=== PATIENT | female | born 1945 | race Caucasian/White ===

== ENCOUNTER 2016-05-06 08:47 | Emergency (ER) | payer OTHER ==
[2016-05-06] MEDS ORDERED: ASPIRIN PO STA (09:01)
[2016-05-06] MEDS ORDERED: NITROGLYCERIN SL PRN (09:01)
[2016-05-06 09:26] LABS: MANUAL DIFF NEEDED? NO
[2016-05-06 09:29] LABS: BASO% 0.4 % (0.0-0.8); HEMATOCRIT 38.5 % (37.0-47.0); HEMOGLOBIN 12.9 g/dL (12.0-16.0); LYMPH# 0.45 X1000 (1.2-3.4); LYMPH% 9.1 % (20.5-51.1); MCH 31.2 PG (27-31); MCHC 33.5 g/dL (33-37); MONO# 0.48 X1000 (0.11-0.59); MONO% 9.7 % (1.7-9.3); MPV 11.3 FL (7.4-10.4); NEUT% 80.8 % (42.2-75.2); PLT 158 X1000 (130-400); RBC 4.14 XMIL (4.2-5.4)
--- NOTE | 2016-05-06 09:38 | PROVIDER DOCUMENTATION ---
HPI-Respiratory General - General Source: patient - History of Present Illness-Resp Quality of Pain: reports: dull Severity in ED: reports: mild Onset/Duration: reports: gradual, 2 days ago Timing: reports: still present, constant Context: reports: multiple patients with similar complaints Cough Quality/Degree: reports: moderate, dry cough Episode Frequency: occasional episodes Current Respiratory Medication Therapy: Initiated see nurses note Modifying Factors: worse with: coughing Associated Symptoms: reports: cough, shortness of breath, short of breath. denies: flu-like symptoms, nasal congestion, nasal drainage, wheezing Similar Symptoms Previously?: No Recently seen or treated by another doctor?: Yes <Kevin Brooks - Last Filed: 05/06/16 10:23> <Brooklynn Lopez - Last Filed: 05/06/16 14:06> - General Chief Complaint: Fall Stated Complaint: Weaknes, Sob Time Seen by Provider: 05/06/16 09:03 Allergies/Adverse Reactions: Patient Allergies Allergy/AdvReac Type Severity Reaction Status Date / Time No Known Allergies Allergy Verified 05/06/16 09:02 Home Medications: Home Medication List Medication Instructions Recorded Confirmed Last Taken Type Omeprazole 40 mg PO 0700 05/11/13 05/06/16 05/06/16 History PRAVAstatin [Pravachol] 80 mg PO QHS 05/11/13 05/06/16 05/06/16 History Aspirin 325 mg PO DAILY 06/12/14 05/06/16 05/06/16 History Metoprolol Tartrate 25 mg PO BID 10/09/14 05/06/16 05/06/16 History Potassium Chloride [Klor-Con 8] 8 meq PO BID #0 10/18/14 05/06/16 05/06/16 Rx Albuterol Sulfate Inhaler 2 puff INH Q6H PRN PRN #1 inhaler 01/19/16 05/06/16 Rx [Ventolin Hfa] Potassium Chloride [K-Tab] 10 meq PO DAILY #20 tablet.er 01/19/16 05/06/1605/06 Rx Alprazolam [Xanax] 0.5 mg PO PRN PRN 05/06/16 05/06/16 Unknown History Furosemide [Lasix] 20 mg PO QAM 05/06/16 05/06/1605/06/17 History - History of Present Illness-Resp Nature of Presenting Problem: patient is a 71 y/o F that presents to the ER with shortness of breath, cough, weakness x 2 days. Patient reports getting weaker everyday. She has a fall last pm with due to weakness. Denies n/v/d. (Kevin Brooks) Review of Systems - Adult - REVIEW OF SYSTEMS - ADULT Constitutional: reports: fatique. denies: chills, fever Eyes: reports: no symptoms reported Ears, Nose, Mouth & Throat: denies: ear pain, sinus problem, throat pain, throat swelling Cardiovascular: denies: chest pain, palpitations Respiratory: reports: cough, shortness of breath. denies: wheezing Gastrointestinal: denies: abdominal pain, diarrhea, frequent heartburn, rectal bleeding Genitourinary: reports: no symptoms reported Musculoskeletal: reports: muscle aches, muscle weakness Integumentary: reports: no symptoms reported Neurological: reports: headache/migraines. denies: syncope Psychiatric: reports: no symptoms reported Endocrine: reports: no symptoms reported Hematologic/Lymphatic: reports: no symptoms reported Allergic/Immunologic: reports: no symptoms reported All Other Systems: Reviewed and Negative <Kevin Brooks - Last Filed: 05/06/16 10:23> Past History - Adult - PAST MEDICAL HISTORY-ADULT Review of Records: reports: Old Records Reviewed, Nursing Assessment Review, Medications Reviewed Cardiovascular: reports: HTN, hyperlipidemia, ID Respiratory: reports: COPD Gastrointestinal: reports: GERD Obstetrical/Gynecological: reports: other (breast ca) Neurological: reports: CVA - PRIOR SURGERIES/PROCEDURES Surgical/Procedure History: reports: appendectomy, hysterectomy, tonsillectomy - IMMUNIZATION STATUS Childhood Immunizations: See Nurse Assessment Flu Vaccine: See Nurse Assessment - FAMILY HISTORY Family History: reviewed, not pertinent - SOCIAL HISTORY Smoking: quit greater than 1 year, cigarettes Living Situation: family <Kevin Brooks - Last Filed: 05/06/16 10:23> Physical Exam-General - PHYSICAL EXAM-ADULT Initial Vital Signs Reviewed: Yes - CONSTITUTIONAL General Appearance: alert, no apparent distress - EYES Eyes: PERRL/EOMI, pink conjunctivae - HEAD, EARS, NOSE, MOUTH & THROAT HENMT: normocephalic/atraumatic, moist mucous membranes, normal ENT inspection - NECK Neck: full range of motion, normal inspection - RESPIRATORY Respiratory: no respiratory distress, no accessory muscle use, decreased breath sounds (right base) - CARDIOVASCULAR Cardiovascular: no JVD, other (irregular regular) - GASTROINTESTINAL (ABDOMEN) Abdominal Exam: normal bowel sounds, non tender, soft - MUSCULOSKELETAL Extremity: normal range of motion, no calf tenderness, normal capillary refill, pelvis stable - SKIN Integumentary: normal color, warm/dry - NEUROLOGIC Neurologic: grossly normal, no motor/sensory deficits - PSYCHIATRIC Psych/Mental Status: normal mood/affect, normal thought content, normal thought process, oriented x 3 <Kevin Brooks - Last Filed: 05/06/16 10:23> Progress - EKG 1 Time of EKG reading by physician:: 08:58 EKG Read and Signed by:: Tl Azevedo EKG Interpretation (*Must complete 3 of following elements*): Abnormal Rate: 96 Rhythm: NSR [place]: normal QRS: normal VT Interval: normal ST Wave: non-specific ST changes - XRAY 1 XRAY Study: Chest Impression: Abnormal XRAY Interpretation: pulmonary vascular congestion <Kevin Brooks - Last Filed: 05/06/16 10:23> - REASSESSMENT Reassessment #1 Time Reassessed: 14:04 (Pt reports she is feeling better and is aware of her X- ray results. Pt reports she sometimes forgets to take her medication, Dr. Azevedo advised her to use a medicine dispensary) Status: improving - CT/MRI 1 CT Study: Angiogram (no acute disease) <Brooklynn Lopez - Last Filed: 05/06/16 14:06> - PLAN OF CARE/RESULTS Progress/Plan/Lab Results: plan of care-labs,ekg,cxry 1023-Due to elevated d-dimer, ct angio r/o pe ordered (Kevin Brooks) Laboratory Tests 05/06/16 05/06/16 05/06/16 09:00 09:00 09:00 WBC 4.95 RBC 4.14 L Hgb 12.9 Hct 38.5 MCV 93.0 MCH 31.2 H MCHC 33.5 RDW Std Deviation 14.9 H Plt Count 158 MPV 11.3 H Immature Gran % (Auto) 0.0 Neut % (Auto) 80.8 H Lymph % (Auto) 9.1 L Sutton % (Auto) 9.7 H Eos % (Auto) 0.0 Baso % (Auto) 0.4 Immature Gran # (Auto) 0.00 Neut # (Auto) 4.00 Lymph # (Auto) 0.45 L Sutton # (Auto) 0.48 Eos # (Auto) 0.00 Baso # (Auto) 0.02 PT INR PTT (Actin FS) D-Dimer 1.83 H Sodium 134 L Potassium 3.0 L Chloride 96 L Carbon Dioxide 23 L Anion Gap 15 BUN 20 Creatinine 0.8 Estimated GFR/1.73 m2 > 60 BUN/Creatinine Ratio 25 Glucose 114 H Calculated Osmolality 272 Calcium 8.5 L Magnesium 1.4 L Total Bilirubin 0.50 AST 35 H ALT 17 Alkaline Phosphatase 90 Creatine Kinase 109 Troponin T Rqj-E-Kirgyoimzhu Pept Total Protein 6.5 Albumin 3.5 Globulin 3.0 Albumin/Globulin Ratio 1.2 Urine Source Urine Color Urine Turbidity Urine pH Ur Specific [place] Urine Protein Ur Glucose (Stick) Ur Ketones (Stick) Urine Blood Urine Nitrite Urine Bilirubin Urobilinogen Dipstick Urine Leukocytes Urine WBC (Auto) Urine RBC (Auto) U Epithel Cells (Auto) Urine Bacteria (Auto) 05/06/16 05/06/16 05/06/16 09:00 09:00 09:00 WBC RBC Hgb Hct MCV MCH MCHC RDW Std Deviation Plt Count MPV Immature Gran % (Auto) Neut % (Auto) Lymph % (Auto) Sutton % (Auto) Eos % (Auto) Baso % (Auto) Immature Gran # (Auto) Neut # (Auto) Lymph # (Auto) Sutton # (Auto) Eos # (Auto) Baso # (Auto) PT 11.1 INR 1.05 PTT (Actin FS) 23.7 D-Dimer Sodium Potassium Chloride Carbon Dioxide Anion Gap BUN Creatinine Estimated GFR/1.73 m2 BUN/Creatinine Ratio Glucose Calculated Osmolality Calcium Magnesium Total Bilirubin AST ALT Alkaline Phosphatase Creatine Kinase Troponin T < 0.010 Lti-L-Xiyhcoegkbh Pept 994 H Total Protein Albumin Globulin Albumin/Globulin Ratio Urine Source Urine Color Urine Turbidity Urine pH Ur Specific [place] Urine Protein Ur Glucose (Stick) Ur Ketones (Stick) Urine Blood Urine Nitrite Urine Bilirubin Urobilinogen Dipstick Urine Leukocytes Urine WBC (Auto) Urine RBC (Auto) U Epithel Cells (Auto) Urine Bacteria (Auto) 05/06/16 10:01 WBC RBC Hgb Hct MCV MCH MCHC RDW Std Deviation Plt Count MPV Immature Gran % (Auto) Neut % (Auto) Lymph % (Auto) Sutton % (Auto) Eos % (Auto) Baso % (Auto) Immature Gran # (Auto) Neut # (Auto) Lymph # (Auto) Sutton # (Auto) Eos # (Auto) Baso # (Auto) PT INR PTT (Actin FS) D-Dimer Sodium Potassium Chloride Carbon Dioxide Anion Gap BUN Creatinine Estimated GFR/1.73 m2 BUN/Creatinine Ratio Glucose Calculated Osmolality Calcium Magnesium Total Bilirubin AST ALT Alkaline Phosphatase Creatine Kinase Troponin T Vzx-C-Liepftwzsyl Pept Total Protein Albumin Globulin Albumin/Globulin Ratio Urine Source CLEAN CATCH Urine Color YELLOW Urine Turbidity CLEAR Urine pH 6.0 Ur Specific [place] 1.033 Urine Protein 30 A Ur Glucose (Stick) NEGATIVE Ur Ketones (Stick) 20 A Urine Blood SMALL A Urine Nitrite NEGATIVE Urine Bilirubin NEGATIVE Urobilinogen Dipstick NORMAL Urine Leukocytes NEGATIVE Urine WBC (Auto) <10 Urine RBC (Auto) 10-20 A U Epithel Cells (Auto) <10 Urine Bacteria (Auto) NEGATIVE (Brooklynn Lopez) Departure <Kevin Brooks - Last Filed: 05/06/16 10:23> - Departure Time of Disposition Order: 13:58 Certified Medical Emergency: Emergent <Brooklynn Lopez - Last Filed: 05/06/16 14:06> - Departure DIAGNOSIS: SOB (shortness of breath), Cough CHF (congestive heart failure) Qualifiers: Congestive heart failure type: unspecified congestive heart failure type Congestive heart failure chronicity: unspecified congestive heart failure chronicity Qualified Code(s): I50.9 - Heart failure, unspecified Disposition: HOME 01 Condition: Stable Referrals: Low Erazo MD [Primary Care Provider] - Attestation - Scribe Verification/Attestation Scribe:: Kevin Brooks Acting as Scribe for:: Tl Azevedo Scribe documention review:: This chart was documented by a scribe and accurately reflects the service the provider performed and the decisions made by the provider. <Kevin Brooks - Last Filed: 05/06/16 10:23> - Scribe Verification/Attestation Scribe:: Brooklynn Lopez Acting as Scribe for:: Tl Azevedo Scribe documention review:: This chart was documented by a scribe and accurately reflects the service the provider performed and the decisions made by the provider. <Brooklynn Lopez - Last Filed: 05/06/16 14:06> Physician Attestation - Physician Attestation I, the provider, attest to the following statement:: Tl Azevedo Physician documentation Attestation:: This documentation recorded by the scribe accurately reflects the service I personally performed and the decisions made by me. <Kevin Brooks - Last Filed: 05/06/16 10:23>
--- NOTE | 2016-05-06 09:38 | Diag Imaging Result Document ---
PROCEDURE NAME: CHEST-1 VIEW - 05/06/2016 PORTABLE CHEST X-RAY, 05/06/2016: COMPARISON: 04/02/2016. FINDINGS: There is a stable epicardial fat pad at the left heart border. Heart size is grossly normal. There is however moderate pulmonary vascular congestion. No focal infiltrates, pneumothorax, or large effusion. Surgical clips along the right chest wall are stable. IMPRESSION: Pulmonary vascular congestion.
[2016-05-06 09:40] LABS: INR 1.05; PROTIME 11.1 Seconds (9.2-11.7); PTT 23.7 Seconds (22.0-36.0)
[2016-05-06 09:48] LABS: AGAP 15; ALBUMIN 3.5 g/dL (3.5-5.0); ALKALINE PHOSPHATASE 90 U/L (32-104); BUN 20 mg/dL (8-22); CALCIUM 8.5 mg/dL (8.8-10.2); CHLORIDE 96 mmol/L (98-107); CK PROFILE 109 U/L (24-173); COSMO 272; GOT 35 U/L (10-30); GPT 17 U/L (10-36); MAGNESIUM 1.4 mg/dL (1.5-2.7); SODIUM 134 mmol/L (136-145); TCO2 23 mmol/L (25-35); TOTAL PROTEIN 6.5 g/dL (6.3-8.3)
[2016-05-06] MEDS ORDERED: LASIX IV ONE (10:23)
[2016-05-06] MEDS ORDERED: DUONEB (A & A) INH ONE ×2 (10:23→14:05)
--- NOTE | 2016-05-06 10:51 | EKG Report ---
Test Performed on : 05/06/2016 08:58:11 AM Test Reason : Chest Pain Blood Pressure : / mmHG Vent. Rate : 096 BPM Atrial Rate : 096 BPM P-R Int : 152 ms QRS Dur : 088 ms QT Int : 326 ms P-R-T Axes : 022 -10 084 degrees QTc Int : 411 ms Normal sinus rhythm. Inferior infarct , age undetermined Cannot rule out Anterior infarct (cited on or before 28-JUN-2013) Abnormal ECG When compared with ECG of 02-APR-2016 11:42, T wave inversion now evident in Lateral leads Unconfirmed Result
[2016-05-06 10:54] LABS: URINE MICRO REVIEW NEEDED? NO; URINE SOURCE CLEAN CATCH
[2016-05-06 10:58] LABS: BILIRUBIN URINE NEGATIVE (NEGATIVE); BLOOD URINE SMALL (NEGATIVE); COLOR YELLOW; GLUCOSE URINE NEGATIVE (NEGATIVE); LEUKOCYTES URINE NEGATIVE (NEGATIVE); NITRITE URINE NEGATIVE (NEGATIVE); PROTEIN URINE 30 mg/dL (NEGATIVE); SP GRAVITY URINE 1.033; TURBIDITY URINE CLEAR (CLEAR); UROBILINOGEN URINE NORMAL (NORMAL)
[2016-05-06 11:00] LABS: UR EPITHELIAL CELLS <10 /HPF (<10); URINE BACTERIA NEGATIVE /HPF; URINE WBC <10 /HPF (<10)
[2016-05-06] MEDS ORDERED: ROCEPHIN 1 GM/NS 50 ML IV ONE (14:05)
--- NOTE | 2016-05-06 14:17 | Diag Imaging Result Document ---
PROCEDURE NAME: ANGIOGRAM/PULMONARY ARTERIES - 05/06/2016 CT PULMONARY ANGIOGRAM WITH INTRAVENOUS CONTRAST: A CT dose reduction protocol was used. COMPARISON: 01/19/2016. FINDINGS: Axial CT images of the chest were obtained after administering intravenous contrast. Coronal MIP images were generated. There is no pulmonary embolism. Heart and great vessels are normal. Upper abdominal images are unremarkable. There is some moderate peripheral pulmonary scarring, stable from prior. There is no acute bony lesion. IMPRESSION: No acute disease or change from prior. [facility]
[2016-05-06 15:34] VITALS: BP 129/84
== END 2016-05-06 15:35 | disposition home or self-care (01) ==
LOC: EDBD → ED 08:47
DX: I50.9 Heart failure, unspecified (principal); R06.02 Shortness of breath; R05 Cough; R79.1 Abnormal coagulation profile; M62.81 Muscle weakness (generalized); M79.1 Myalgia; R51 Headache; R53.83 Other fatigue; Z79.899 Other long term (current) drug therapy; I10 Essential (primary) hypertension; E78.5 Hyperlipidemia, unspecified; I25.2 Old myocardial infarction; J44.9 Chronic obstructive pulmonary disease, unspecified; K21.9 Gastro-esophageal reflux disease without esophagitis; Z85.3 Personal history of malignant neoplasm of breast; Z86.73 Personal history of transient ischemic attack (TIA), and cerebral infarction without residual deficits; Z87.891 Personal history of nicotine dependence; R94.31 Abnormal electrocardiogram [ECG] [EKG]; W19.XXXA Unspecified fall, initial encounter; Z79.82 Long term (current) use of aspirin
CPT/HCPCS: 71010; 71275; 80053; 81001; 82550; 83735; 83880; 84484; 85025; 85379; 85610; 85730; 93005; 94640; J0696; J1940; Q9967

== ENCOUNTER 2019-03-10 12:13 | Inpatient (IN) ==
--- NOTE | 2019-03-10 12:56 | PROVIDER DOCUMENTATION ---
HPI-Abdominal Pain/GI Problem - General Chief Complaint: Abdominal Pain Stated Complaint: RUQ pain Time Seen by Provider: 03/10/19 12:30 Source: patient Allergies/Adverse Reactions: Patient Allergies Allergy/AdvReac Type Severity Reaction Status Date / Time No Known Allergies Allergy Verified 03/10/19 12:10 Home Medications: Home Medication List Medication Instructions Recorded Confirmed Last Taken Type PRAVAstatin [Pravachol] 80 mg PO QHS 05/11/13 11/09/17 05/06/16 History Aspirin 325 mg PO DAILY 06/12/14 11/09/17 05/06/16 History Metoprolol Tartrate 25 mg PO BID 10/09/14 11/09/17 05/06/16 History Albuterol Sulfate Inhaler 2 puff INH Q6H PRN PRN #1 inhaler 01/19/16 11/09/17 05/06/16 Rx [Ventolin Hfa] Alprazolam [Xanax] 0.5 mg PO PRN PRN 05/06/16 11/09/17 Unknown History Furosemide [Lasix] 20 mg PO QAM 05/06/16 11/09/17 05/06/16 History Albuterol [Albuterol Neb] 2.5 mg INH Q4H PRN PRN #30 neb 10/08/16 11/09/17 Unknown Rx Dicyclomine [Bentyl] 20 mg PO BID #20 cap 09/01/17 11/09/17 Unknown Rx Esomeprazole [Nexium] 40 mg PO DAILY 09/01/17 11/09/17 Unknown History Mag Hydrox/Al Hydrox/Simeth 710 ml PO DIRECTED PRN PRN #1 11/09/17 Unknown Rx [Mylanta Double-Strength Liq] oral.susp Potassium Chloride [Klor-Con 8] 16 meq PO BID 11/09/17 11/09/17 Unknown History Spironolactone 25 mg PO DAILY #90 tablet 11/09/17 Unknown Rx Acetaminophen with Codeine 1 ea PO Q8-12H PRN PRN #14 tab 05/14/18 Unknown Rx [Tylenol with Codeine #3 Tablet] Famotidine [Pepcid] 20 mg PO DAILY #30 tab 03/09/19 Unknown Rx Pantoprazole [Protonix] 40 mg PO DAILY@0700 #30 tab 03/09/19 Unknown Rx - History of Present Illness-ABD Nature of Presenting Problems: 73 YOF PRESENTS FOR RECHECK OF RUQ PAIN,SHE WAS NOTED TO HAVE GALLBLADDER SLUDGE AND SMALL STONES YESTERDAY WITH A WBC OF 16K. A RUQ US WAS DONE AND SHOWED THE ABOVE FINDINGS. SHE PRESENTS TODAY WITH RECURRENT PAIN. SHE HAS HAD SOME NAUSEA. DENIES VOMITING, CP, SOB, DIARRHEA. REPORTS RUQ FEELS SWOLLEN. SHE DID NOT GET RX FOR PAIN FILLED BUT RECEIVED 75MCG OF FENTANYL IN ROUTE THAT IMPROVED PAIN. Abdominal Pain Onset Location: reports: RUQ Pain Radiation: reports: epigastric Quality of Pain: reports: aching Severity in ED: reports: moderate Onset/Duration: reports: 2 days ago Timing: reports: still present Exposure to sick contacts?: No Modifying Factors: worse with: eating Associated Symptoms: reports: seizure Last BM: 24 hours ago Dark Stools Present?: reports: none noticed Rectal Bleeding: reports: none Rectal Pain: reports: none Emesis Description: reports: none Bruising or Bleeding Gums?: No Similar Symptoms Previously?: No Recently seen or treated by another doctor?: No Review of Systems - Adult - REVIEW OF SYSTEMS - ADULT Constitutional: reports: no symptoms reported. denies: see HPI, chills, fever, fatique, night sweats, weight gain, weight loss, other Eyes: reports: no symptoms reported. denies: see HPI, discharge, dry eyes, decreased vision, blurred vision, double vision, eye pain, redness, other Ears, Nose, Mouth & Throat: reports: no symptoms reported. denies: see HPI, ear discharge, ear pain, hearing loss, tinnitus, epistaxis, sinus problem, nose pain, loose teeth, mouth/dental pain, mouth swelling, hoarseness, throat pain, throat swelling, other Cardiovascular: reports: no symptoms reported. denies: see HPI, chest pain, edema, heart murmur, irregular heart rate, orthopnea, palpitations, poor circulation, PND, syncope, other Respiratory: reports: no symptoms reported. denies: see HPI, chronic cough, cough, dyspnea on exertion, excessive sputum production, hemoptysis, pleurisy, shortness of breath, wheezing, other Gastrointestinal: reports: see HPI, abdominal pain, nausea. denies: no symptoms reported, hematemesis, constipation, diarrhea, difficulty swallowing, frequent heartburn, poor appetite, rectal bleeding, vomiting, other Genitourinary: reports: no symptoms reported. denies: see HPI, dysuria, discharge, frequency, flank pain, frequent UTI's, hematuria, hesitency, incontinence, urinary retention, urgency, other Musculoskeletal: reports: no symptoms reported. denies: see HPI, bone pain, back pain, frequent leg cramps, joint pain, joint swelling, muscle aches, muscle weakness, neck pain, other Integumentary: reports: no symptoms reported. denies: see HPI, hives, hair loss, itching, mole changes, nail changes, rash, skin sores/ulcer, skin thickening, other Neurological: reports: no symptoms reported. denies: see HPI, ataxia, dizziness/vertigo, headache/migraines, loss of balance, numbness, paresthesia, seizure, slurred speech, syncope, tremors, other Psychiatric: reports: no symptoms reported. denies: see HPI, anxiety, anti- depressant use, alcohol/drug dependence, depression, emotional problems, insomnia, panic attacks, suicidal thoughts, other Endocrine: reports: no symptoms reported. denies: see HPI, change in skin pigment, excessive sweating, goiter, cold intolerance, heat intolerance, increased hunger, increased thirst, polyuria, other Hematologic/Lymphatic: reports: no symptoms reported. denies: see HPI, blood clots, easy bruising, low blood count, lymphedema, prolonged bleeding, swollen lymph nodes, transfusions, other Allergic/Immunologic: reports: no symptoms reported. denies: see HPI, allergic reactions, allergic rhinitis, asthma, eczema, food allergy, frequent infections, hay fever, hives, positive PPD, urticaria, other Past History - Adult - PAST MEDICAL HISTORY-ADULT Review of Records: reports: Nursing Assessment Review, Social history reviewed & non-contributory. Major Childhood Illnesses: reports: denies history Cardiovascular: reports: HTN, hyperlipidemia, [place] Respiratory: reports: COPD Gastrointestinal: reports: GERD Obstetrical/Gynecological: reports: other (breast ca) Genitourinary: reports: denies history Musculoskeletal: reports: denies history Neurological: reports: CVA, TIA Psychiatric: reports: denies history Endocrine/Immune: reports: denies history Other Conditions: reports: denies history - PRIOR SURGERIES/PROCEDURES Surgical/Procedure History: reports: appendectomy, hysterectomy, tonsillectomy - IMMUNIZATION STATUS Childhood Immunizations: See Nurse Assessment Flu Vaccine: See Nurse Assessment - FAMILY HISTORY Family History: reviewed, not pertinent Physical Exam-General - PHYSICAL EXAM-ADULT Initial Vital Signs Reviewed: Yes - CONSTITUTIONAL General Appearance: alert, no apparent distress. negative: appears well (APPEARS IN PAIN) - EYES Eyes: PERRL/EOMI, pink conjunctivae - HEAD, EARS, NOSE, MOUTH & THROAT HENMT: normocephalic/atraumatic, moist mucous membranes, normal ENT inspection - NECK Neck: non-tender, full range of motion, supple - RESPIRATORY Respiratory: chest non-tender, lungs clear, normal breath sounds, no pleuratic chest pain, no respiratory distress, no accessory muscle use - CARDIOVASCULAR Cardiovascular: normal peripheral pulses, regular rate, rhythm. negative: no edema (RUE, CHRONIC) - GASTROINTESTINAL (ABDOMEN) Abdominal Exam: normal bowel sounds, soft, distended (RUQ), tenderness (RUQ), Weber's sign - LYMPHATIC Lymphatic: no adenopathy - MUSCULOSKELETAL Back Exam: normal inspection, no CVA tenderness, no vertebral tenderness Extremity: normal range of motion, non-tender, normal gait - SKIN Integumentary: normal color, normal turgor, warm/dry - NEUROLOGIC Neurologic: grossly normal - PSYCHIATRIC Psych/Mental Status: normal mood/affect, oriented x 3 Progress - PLAN OF CARE/RESULTS Progress/Plan/Lab Results: Vital Signs - 8 hr 03/10/19 12:18 Temperature 97.4 F L Pulse Rate 74 Respiratory Rate 18 Blood Pressure 141/76 O2 Sat by Pulse Oximetry 100 Orders Category Date Time Status CT ABD/PELVIS W/IV CONT ONLY [CT] Stat Exams 03/10/19 12:08 Ordered cxr [CHEST-2 VIEWS] [RAD] Stat Exams 03/10/19 12:27 Ordered AMYLASE [CHEM] Stat Lab 03/10/19 12:08 Ordered CBC WITH ELECTRONIC DIFF [HEME] Stat Lab 03/10/19 12:47 Ordered COMPREHENSIVE METABOLIC PANEL [CHEM] Stat Lab 03/10/19 12:47 Ordered LACTATE, PLASMA [CHEM] Stat Lab 03/10/19 12:47 Ordered LIPASE [CHEM] Stat Lab 03/10/19 12:47 Ordered UA NIMS W/REFLEX CULT [URINALYSIS] Stat Lab 03/10/19 12:08 Uncollected Result Diagrams: 03/10/19 12:45 03/10/19 12:45 - CT/MRI 1 CT Study: Abdomen, Pelvis Impression: See EMR Report (EXAM: CT ABD/PELVIS W/IV CONT ONLY - 03/10/2019 HISTORY: PAIN TECHNIQUE: CT abdomen/pelvis with intravenous contrast COMPARISON: 09/01/2017 FINDINGS: The gallbladder is moderately distended. There are two subcentimeter calcified gallstones in the dependent portion of gallbladder. There is no gross gallbladder wall thickening or pericholecystic inflammation identified. There is no pancreatic mass or inflammation identified. There is mild scarring at the visualized lung bases. There are stable tiny cyst at the dome of liver. There are no acute abnormalities of the liver, spleen, or adrenal glands identified. The bilateral kidneys enhance homogeneously. There is no hydronephrosis. There are no substantially enlarged lymph nodes identified. There is no evidence of bowel obstruction. The appendix is questionably visualized and unremarkable. There is mild diverticulosis at sigmoid colon. There is no evidence of diverticulitis. There is no substantial bowel wall thickening identified. There is no free air, free fluid, or abscess identified. Images of pelvis otherwise show postsurgical changes of partial hysterectomy. There is no abnormal pelvic mass or fluid collection identified. IMPRESSION: Moderately distended gallbladder. Two small gallstones in dependent portion of gallbladder. No gross gallbladder wall thickening or pericholecystic inflammation seen. Mild diverticulosis at sigmoid colon. No evidence of diverticulitis. This exam was performed using automated exposure control, adjustment of mA or kV according to patient size, and/or use of iterative reconstruction technique. Electronically signed by Stefan Robbins 03/10/2019 2:13 PM 03/10/19 1413 Interpreting Physician: Stefan Robbins MD Dictated Date/Time: 03/10/19 1407 cc: Mary Alice Sheppard;) - CONSULTS/PCP/HOSPITALIST Notification #1 *Consult/PCP/Hospitalist*: DR FARRELL Time Discussed: 15:02 Consult Disposition: Admit (AT ) #2 Consult: DR DANIELS Time Discussed: 15:02 Consult Disposition: Admit Departure - Departure Date of Disposition Decision: 03/10/19 Time of Disposition Decision: 15:01 DIAGNOSIS: Gall bladder disease, Cholecystitis Disposition: ADMITTED INPATIENT 09 Certified Medical Emergency: Emergent Condition: Stable - Critical Care Note This patient required my direct & personal management of CC.: No Attestation - Physician/ MARKUS Attestation Patient care was provided by Advanced Practice Provider:: Yes Advanced Practice Provider:: Mary Alice Sheppard Advanced Practice Provider documentation review:: The Mid-level provider documentation, treatment plan and medical decision making was reviewed by the physician who agrees with all treatment and medical decision making by the MLP. The physician spent face to face time with patient:: No Advanced Practice Provider documentation review:: Supervising physician onsite and consulted in the evaluation and care of this patient. The physician did not have a face to face encounter with the patient.
[2019-03-10 13:17] LABS: BASO# 0.02 X1000 (0.0-0.2); BASO% 0.2 % (0.0-0.8); EOS# 0.04 X1000 (0.0-0.7); EOS% 0.4 % (0.0-10.0); HEMATOCRIT 42.8 % (37.0-47.0); IMM GRAN# 0.02 X1000 (0.0-0.04); IMM GRAN% 0.2 % (0.0-0.5); LYMPH# 0.87 X1000 (1.2-3.4); MCHC 32.7 g/dL (33-37); MCV 91.8 FL (81-99); MONO# 0.47 X1000 (0.11-0.59); MONO% 4.3 % (1.7-9.3); MPV 12.2 FL (7.4-10.4); NEUT# 9.44 X1000 (1.4-6.5); NEUT% 86.9 % (42.2-75.2); PLT 160 X1000 (130-400); RBC 4.66 XMIL (4.2-5.4); RDW 13.7 % (11.5-14.5); WBC 10.86 X1000 (4.8-10.8)
[2019-03-10 13:27] LABS: AGAP 15; ALBUMIN 3.8 g/dL (3.5-5.0); ALKALINE PHOSPHATASE 218 U/L (32-104); BUN 16 mg/dL (8-22); CALCIUM 9.2 mg/dL (8.8-10.2); CHLORIDE 99 mmol/L (98-107); COSMO 279; CREATININE 0.8 mg/dL (0.5-0.9); ESTIMATED GFR > 60; GLUCOSE 106 mg/dL (70-104); GOT 404 U/L (10-30); GPT 235 U/L (10-36); LIPASE 23 U/L (13-60); POTASSIUM 4.1 mmol/L (3.5-5.1); SODIUM 139 mmol/L (136-145); TCO2 25 mmol/L (25-35); TOTAL PROTEIN 7.5 g/dL (6.3-8.3)
[2019-03-10 13:30] LABS: URINE SOURCE CLEAN CATCH
[2019-03-10 13:36] LABS: BILIRUBIN URINE NEGATIVE (NEGATIVE); BLOOD URINE NEGATIVE (NEGATIVE); COLOR YELLOW; GLUCOSE URINE NEGATIVE (NEGATIVE); KETONE URINE TRACE mg/dL (NEGATIVE); LEUKOCYTES URINE TRACE (NEGATIVE); NITRITE URINE NEGATIVE (NEGATIVE); PH URINE 5.5; PROTEIN URINE NEGATIVE (NEGATIVE); SP GRAVITY URINE 1.012; TURBIDITY URINE CLEAR (CLEAR); UROBILINOGEN URINE NORMAL (NORMAL)
--- NOTE | 2019-03-10 14:00 | Diag Imaging Result Doc PS360 ---
CHEST-2 VIEWS - 03/10/2019 INDICATION: RUQ PAIN, R/O PNA, SAT 90% COMPARISON: 08/30/2018 FINDINGS: Stable surgical clips throughout the right axillary soft tissues. Lung volumes are severely low. There is some patchy bibasilar atelectasis. There is cardiomegaly and pulmonary vascular congestion. No pneumothorax or pleural effusion. Stable mild compression deformities at the upper thoracic spine. IMPRESSION: Low lung volumes with patchy bibasilar atelectasis. Cardiomegaly and pulmonary vascular congestion. Electronically signed by Cholo Zuniga 03/10/2019 1:58 PM
[2019-03-10 14:02] LABS: UR EPITHELIAL CELLS <10 /HPF (<10); URINE BACTERIA NEGATIVE /HPF; URINE CASTS NONE SEEN; URINE CRYSTALS NONE SEEN; URINE RBC <10 /HPF (<10); URINE SMALL ROUND CELLS NONE SEEN; URINE WBC <10 /HPF (<10); URINE YEAST NONE SEEN
--- NOTE | 2019-03-10 14:16 | Diag Imaging Result Doc PS360 ---
EXAM: CT ABD/PELVIS W/IV CONT ONLY - 03/10/2019 HISTORY: PAIN TECHNIQUE: CT abdomen/pelvis with intravenous contrast COMPARISON: 09/01/2017 FINDINGS: The gallbladder is moderately distended. There are two subcentimeter calcified gallstones in the dependent portion of gallbladder. There is no gross gallbladder wall thickening or pericholecystic inflammation identified. There is no pancreatic mass or inflammation identified. There is mild scarring at the visualized lung bases. There are stable tiny cyst at the dome of liver. There are no acute abnormalities of the liver, spleen, or adrenal glands identified. The bilateral kidneys enhance homogeneously. There is no hydronephrosis. There are no substantially enlarged lymph nodes identified. There is no evidence of bowel obstruction. The appendix is questionably visualized and unremarkable. There is mild diverticulosis at sigmoid colon. There is no evidence of diverticulitis. There is no substantial bowel wall thickening identified. There is no free air, free fluid, or abscess identified. Images of pelvis otherwise show postsurgical changes of partial hysterectomy. There is no abnormal pelvic mass or fluid collection identified. IMPRESSION: Moderately distended gallbladder. Two small gallstones in dependent portion of gallbladder. No gross gallbladder wall thickening or pericholecystic inflammation seen. Mild diverticulosis at sigmoid colon. No evidence of diverticulitis. This exam was performed using automated exposure control, adjustment of mA or kV according to patient size, and/or use of iterative reconstruction technique. Electronically signed by Stefan Robbins 03/10/2019 2:13 PM
[2019-03-10] MEDS: NS 1,000 ML IV SCH (15:38)
[2019-03-10] MEDS: ZOSYN 3.375 GM in NS 50 ML IV SCH ×2 (15:38→21:05)
[2019-03-10] MEDS: TYLENOL PO PRN (15:42)
[2019-03-10] MEDS: ZOFRAN IV PRN (15:42)
[2019-03-10] MEDS ORDERED: MORPHINE IV ONE (16:28)
[2019-03-10] MEDS ORDERED: ZOFRAN IV ONE (16:28)
[2019-03-11] MEDS: ZOSYN 3.375 GM in NS 50 ML IV SCH ×4 (02:24→21:24)
[2019-03-11] MEDS: NS 1,000 ML IV SCH ×3 (02:25→18:45)
[2019-03-11] MEDS: TYLENOL PO PRN ×2 (02:27→12:10)
[2019-03-11 08:16] LABS: HEMATOCRIT 36.7 % (37.0-47.0); HEMOGLOBIN 12.1 g/dL (12.0-16.0); MCH 30.7 PG (27-31); MCV 93.1 FL (81-99); MPV 12.2 FL (7.4-10.4); RBC 3.94 XMIL (4.2-5.4); RDW 13.9 % (11.5-14.5); WBC 6.32 X1000 (4.8-10.8)
[2019-03-11] MEDS ORDERED: PROTONIX IV ONE (08:52)
[2019-03-11] MEDS ORDERED: SODIUM CHLORIDE 0.9% INJ ONE (08:52)
[2019-03-11 09:10] LABS: CALCIUM 8.2 mg/dL (8.8-10.2); MAGNESIUM 1.6 mg/dL (1.5-2.7); POTASSIUM 3.4 mmol/L (3.5-5.1); TOTAL BILIRUBIN 5.28 mg/dL (0.20-1.00)
--- NOTE | 2019-03-11 12:13 | PROGRESS NOTE ---
DATE: 03/11/2019 SUBJECTIVE: The patient is resting comfortably in bed. She is still complaining of right upper quadrant pain. She has Weber sign positive. No rebound. No signs of peritoneal irritation. PHYSICAL EXAMINATION: Vital Signs: Temperature 97.8 degrees, pulse 68, respiratory rate 16, blood pressure 113/53, oxygen saturation 97% on room air. HEENT: Head normocephalic, no trauma. PERRLA. Neck: Neck is supple. No JVD. No masses. Central trachea. Chest: Clear to auscultation. No wheezing. No rales. Abdomen: Soft. Tenderness to palpation at the level of the right upper quadrant. Weber sign positive. Neurological examination: The patient is awake, alert. She is oriented x3. No focal deficits. LABORATORY: WBC 6.2, hemoglobin 12.1, hematocrit 36.7, platelet 148. Pending CMP, but the LFTs from yesterday are elevated; total bilirubin 3.4, AST 404, ALT 235, alkaline phosphatase 218. ASSESSMENT AND PLAN: 1. Right upper quadrant pain, likely due to cholecystitis. This patient will be going hopefully to the operating room. As per the patient, she has been evaluated by Surgery Department today, and she has been scheduled today for surgery. 2. History of coronary artery disease status post stent placement, previous myocardial infarction. She seems to be well controlled. Continue with same management. Continue with her home medications after surgery. 3. Dyslipidemia. Continue with atorvastatin once she is able to tolerate oral. 4. Hypertension. Continue home medications, including metoprolol. 5. Gastroesophageal reflux disease. Continue with proton pump inhibitors. I will started that treatment at this moment intravenously. 6. As per the patient, she has a history of chronic obstructive pulmonary disease, but I do not see any medication listed for chronic obstructive pulmonary disease treatment at home. cc: Rosendo Garcia MD
[2019-03-11] MEDS ORDERED: MARCAINE 0.25% PF ONE (13:20)
[2019-03-11] MEDS ORDERED: SODIUM CHLORIDE 0.9% ONE (13:20)
[2019-03-11] MEDS ORDERED: LR 1,000 ML ONE (13:20)
[2019-03-11] MEDS ORDERED: DIPRIVAN 1% ONE ×2 (14:00→14:49)
[2019-03-11] MEDS ORDERED: TORADOL ONE (14:24)
[2019-03-11] MEDS ORDERED: DECADRON ONE (14:24)
[2019-03-11] MEDS ORDERED: ZOFRAN ONE (14:24)
[2019-03-11] MEDS ORDERED: ZEMURON ONE (14:28)
--- NOTE | 2019-03-11 14:32 | CONSULTATION ---
DATE OF CONSULTATION: 03/11/2019 Ms. Francoise Monteiro is a 73-year-old white female patient of Dr. Erazo, who this week has experienced epigastric and right upper quadrant pain. She saw Dr. Erazo earlier in the week. She also went to the ER and Wednesday with these symptoms. Yesterday at [facility] Emergency Department, it was noted that she had elevated liver function tests and CT scan suggested stones in her gallbladder and she was transferred from [facility] Emergency Department to [facility] for further care. PAST MEDICAL HISTORY: She had a heart attack in 2009 treated with a stent. She has been on aspirin. She was diagnosed with right-sided breast cancer in 2003 treated with breast conservation and chemotherapy. MEDICATIONS: Tylenol with codeine #3, aspirin, Nexium, Pepcid,Lasix,, metoprolol, potassium, Pravachol. ALLERGIES: No known drug allergies. SOCIAL HISTORY: She is retired. She smoked 30 years ago. REVIEW OF SYSTEMS: A 14-point review of systems was performed and was essentially negative except for the history of present illness. FAMILY HISTORY: Noncontributory but was reviewed with the patient. PHYSICAL EXAM: Vital signs: She weighs 149 pounds. She is 5 feet 2 inches. Heart rate 65, blood pressure 105/56, O2 saturation 96%. She is afebrile. General: Ms. Monteiro is an older white female. She is in no acute distress. HEENT exam: She may have some evidence of jaundice but it is subtle. She has no oral lesions. No cervical or supraclavicular lymphadenopathy. Heart: Regular rate. Lungs: Clear. There is no work of breathing. Abdomen: Soft. She was tender in the epigastrium and right upper quadrant but it was mild tenderness. I could not palpate her gallbladder. She had no previous surgery on her abdomen. There is no hernia. No costovertebral tenderness. Rectal and vaginal exams: Not performed. Extremities: She does have palpable peripheral pulses. No peripheral edema. Neurological: She is alert and oriented x3 and appropriate. Her total bilirubin is 3.4. Liver function tests are elevated. A CT scan documents calcified stones within her gallbladder. IMPRESSION: Symptomatic gallstones, possible stone in the common bile duct with elevated liver function tests. PLAN: Laparoscopic cholecystectomy with intraoperative cholangiogram. I have discussed the procedure in detail with the patient at the bedside including its risks of bleeding, infection, injury to the extrahepatic bile ducts requiring reoperation, conversion of laparoscopic to open cholecystectomy, bile leak requiring reoperation for drainage, and injury to intra-abdominal contents with trocar placement. Her is and had problems after cholecystectomy and we discussed those with her. She understands the need for her surgery and wants to proceed. cc: Edel Aranda MD
[2019-03-11] MEDS ORDERED: ROBINUL ONE (14:50)
[2019-03-11] MEDS ORDERED: QUELICIN (DOSE) ONE (14:50)
[2019-03-11] MEDS ORDERED: NEOSTIGMINE ONE (14:50)
--- NOTE | 2019-03-11 15:30 | Diag Imaging Result Doc PS360 ---
OPERATIVE CHOLANGIOGRAM - 03/11/2019 INDICATION: [place] TECHNIQUE: The exam was performed by the patient's surgeon. Two images were obtained. COMPARISON: None FINDINGS: Contrast was infused into the cystic duct. This outlines a grossly normal common bile duct. Although there is no filling defect, there was no definite passage of contrast into the duodenum. IMPRESSION: Nonspecific findings. Electronically signed by Cholo Zuniga 03/11/2019 3:28 PM
[2019-03-11] MEDS: DILAUDID ONE ×4 (15:45→16:09)
[2019-03-11] MEDS: ZOFRAN IV PRN (17:13)
--- NOTE | 2019-03-11 20:59 | OPERATIVE NOTE ---
PROCEDURE DATE: 03/11/2019 PREOPERATIVE DIAGNOSIS: Chronic cholecystitis with cholelithiasis and choledocholithiasis. POSTOPERATIVE DIAGNOSIS: Chronic cholecystitis with cholelithiasis and choledocholithiasis. PRINCIPAL PROCEDURE: Laparoscopic cholecystectomy with intraoperative cholangiogram. SURGEON: Edel Aranda MD. ANESTHESIA: General in addition to local anesthetic. ESTIMATED BLOOD LOSS: 30 mL. DRAINS: None. INDICATIONS: Francoise Monteiro is a 73-year-old white female who is jaundiced. Ultrasound documented gallstones. It was felt that she had gallstones and possibly stones within her common duct. Cholecystectomy was recommended. FINDINGS: The liver appeared to be healthy. The gallbladder was chronically inflamed and had small stones within it. We did do an intraoperative cholangiogram, which did not show any dye going into the duodenum and it was felt that she had multiple small stones in the distal common bile duct which were obstructing. Her common bile duct was slightly dilated, as was her cystic duct. We felt we did the operation safely. No other intraabdominal pathology was noted. DESCRIPTION OF PROCEDURE: The patient was brought to the operating room, placed supine, received general anesthesia, and was intubated. Her abdomen was prepped and draped within the sterile field. She received Ancef prophylactically. We made a small incision below the umbilicus using a 15 blade scalpel. Veress needle was introduced through this incision into the abdomen. Pneumoperitoneum was established. Veress needle was removed and we placed a 11 mm trocar through this incision into the abdomen. The camera was placed through this port and the abdomen was explored for injury, there was none. Three other trocars were placed along the right costal margin under direct vision the camera. We placed a 11 mm trocar just to the right of the midline and two 5 mm trocars in our midclavicular and anterior axillary lines. Through our most lateral port, the gallbladder was grasped. We had to use the spatula cautery to take down some omentum that was walling off the gallbladder. We used our grasper to grasp the fundus and retracted superiorly along with the right lobe of the liver. Another grasper was used to grab the body and the triangle of Calot was bluntly dissected. We identified the cystic artery. A clip was placed distally, 2 proximally. It was divided using hook scissors. We identified the cystic duct along its length. It was slightly dilated. We used a clip at the cystic duct gallbladder junction. We made a small incision in the cystic duct using hook scissors and a Taut intraoperative cholangiogram catheter was used to perform the cholangiogram with findings above. Once cholangiogram was completed the catheter was removed and 2 clips were placed proximally on the cystic duct and divided the cystic duct between clips using hook scissors. The spatula cautery was used to remove the gallbladder from the liver bed. We then used an endobag to remove the gallbladder through our umbilical incision. We placed the trocar back through this incision and the area of operation was thoroughly inspected, irrigated, and the irrigation was removed with suction. There was no evidence of bile leak or ongoing bleeding. No drains were left. All trocars removed under direct vision the camera. The pneumoperitoneum was allowed to dissipate. I used pyiael-de-sjrsa 2-0 Vicryl stitches to reapproximate the fascia at the umbilicus and all skin was closed with 4-0 Monocryl subcuticular stitches. Dressings were applied. She tolerated the procedure well with plans for her to go to the recovery room and then be readmitted to the floor. We will ask GI medicine to evaluate her cholangiogram for possible ERCP. cc: Edel Aranda MD
[2019-03-11] MEDS: LOPRESSOR PO SCH (21:24)
[2019-03-12] MEDS: ZOSYN 3.375 GM in NS 50 ML IV SCH ×4 (02:43→21:15)
[2019-03-12 06:53] LABS: HEMATOCRIT 36.7 % (37.0-47.0); MCH 30.6 PG (27-31); MCHC 32.7 g/dL (33-37); MCV 93.6 FL (81-99); MPV 12.3 FL (7.4-10.4); RBC 3.92 XMIL (4.2-5.4); RDW 13.9 % (11.5-14.5); WBC 7.51 X1000 (4.8-10.8)
[2019-03-12 07:32] LABS: ALB/GLOB RATIO 0.9; ALBUMIN 2.9 g/dL (3.5-5.0); CALCIUM 8.4 mg/dL (8.8-10.2); CREATININE 1.1 mg/dL (0.5-0.9); MAGNESIUM 1.6 mg/dL (1.5-2.7); PHOSPHORUS 1.9 mg/dL (2.7-4.5); POTASSIUM 3.5 mmol/L (3.5-5.1); TOTAL BILIRUBIN 1.43 mg/dL (0.20-1.00)
[2019-03-12] MEDS: MICRO-K PO SCH ×2 (08:19→21:15)
[2019-03-12] MEDS: NEXIUM PO SCH (08:19)
[2019-03-12] MEDS: LOPRESSOR PO SCH ×2 (08:20→21:15)
[2019-03-12] MEDS: NS 1,000 ML IV SCH ×2 (08:21→21:16)
[2019-03-12] MEDS: PERIDEX MT SCH ×2 (08:21→21:15)
[2019-03-12] MEDS ORDERED: LASIX PO SCH (09:00)
[2019-03-12] MEDS ORDERED: ASPIRIN EC PO SCH (09:00)
--- NOTE | 2019-03-12 10:33 | PROGRESS NOTE ---
DATE: 03/12/2019 Yesterday, Ms. Monteiro underwent a laparoscopic cholecystectomy for jaundice and gallstones. We did do an intraoperative cholangiogram at the time of surgery which suggested small stones in the distal common bile duct. No dye went into the duodenum. This morning, she is awake and feels well. She is tolerating clear liquids. Her trocar sites were intact. Her abdomen is mostly soft and actually her liver function tests have improved somewhat. Her heart rate is 65, blood pressure 131/62, O2 saturation 97%. She is afebrile. She remains on IV antibiotics to avoid cholangitis. Her white blood cell count is normal at 7.51, hematocrit is 37%. BUN and creatinine are 16 and 1.1. Her total bilirubin has gone from 5.3 to 1.4 and her liver function tests have improved. PLAN: Dr. Campbell has been notified of our cholangiogram and will see the patient concerning possible ERCP. cc: Edel Aranda MD
[2019-03-12] MEDS ORDERED: SODIUM PHOSPHATE 15 MMOL in NS 250 ML IV ONE (14:48)
--- NOTE | 2019-03-12 15:44 | PROGRESS NOTE ---
DATE: 03/12/2019 SUBJECTIVE: This patient is resting comfortably in bed. She had a laparoscopic cholecystectomy done yesterday. The cholangiogram at the time of surgery suggested small stones in the distal common bile duct. No dye went into the duodenum, but she is feeling better and actually the LFTs are trending down. We will recheck that in the morning. Her creatinine also is increasing even though she is on IV fluids but, as per the patient, she has been having good urine output. OBJECTIVE: Vital Signs: Temperature 98.2 degrees, pulse 65, respiratory rate 18, blood pressure 116/60, oxygen saturation 95% on room air. HEENT: Head normocephalic. No trauma. PERRLA. Neck: Supple. No JVD. No masses. Central trachea. Chest: Clear to auscultation. No wheezing. No rales. Abdomen: Soft. She has some small incisions, they look stable. She does have some positive bowel sounds. Right upper quadrant tenderness to palpation. Neurological: The patient is awake and alert. She is oriented x3. No focal deficits. LABORATORY: WBC 7.5, hemoglobin 12, hematocrit 36.7, platelets 155,000. Sodium 135, potassium 3.5, chloride 101, bicarbonate 21, BUN 16, creatinine 1.1 glucose 230, calcium 8.9, phosphorus 1.9, total bilirubin 1.4, AST 153, ALT 190, alkaline phosphatase 196, albumin 2.9. ASSESSMENT AND PLAN: 1. Right upper quadrant pain, likely due to cholecystitis, status post laparoscopic cholecystectomy and cholangiogram that showed some filling defect in the distal common bile duct, no dye went into the duodenum, she seems to be stable. She has some pain but likely because of the surgery, liver function tests are trending down. I will check the liver function tests tomorrow in the morning again. 2. History of coronary artery disease, status post stent placement, previous myocardial infarction, stable. No chest pain. 3. Dyslipidemia. Continue with atorvastatin once the liver function tests are normal in the future. 4. Hypertension. Continue with same management. 5. Mild acute kidney injury. Continue with intravenous fluids. She has been having good urine output. 6. Gastroesophageal reflux disease. Continue with proton pump inhibitors. We will recheck the lab work in the morning to see if this patient needs to go for an ERCP. Gastroenterology has been notified. A formal consult has been placed yesterday in the afternoon. cc: Rosendo Garcia MD
[2019-03-13] MEDS: NS 1,000 ML IV SCH ×2 (02:20→19:14)
[2019-03-13] MEDS: ZOSYN 3.375 GM in NS 50 ML IV SCH ×4 (02:20→23:52)
--- NOTE | 2019-03-13 04:04 | GASTROENTEROLOGY CONSULTATION ---
DATE: 03/12/2019 REASON FOR CONSULTATION: Choledocholithiasis. HISTORY OF PRESENT ILLNESS: Ms. Francoise Monteiro is a 73-year-old woman with a past medical history hypertension, hyperlipidemia, and coronary disease status post MD on in 2009 on aspirin, history right breast cancer who presented with 3 to 4 days the right upper quadrant pain, nausea, vomiting. No fever. She states that the pain is 10/10 and came on suddenly. She denies any chest pain or shortness of breath. She obtained a colonoscopy falguni the past with [*]. She underwent laparoscopic cholecystectomy with intraoperative cholangiogram on 03/10/2019 that showed multiple small stones in the distal bile duct with no contrast entering the duodenum. The common bile duct was slightly dilated. Currently she denies any fevers, chest pain, nausea or vomiting. Her abdominal pain is improved. LFTs are improving, but still elevated. REVIEW OF SYSTEMS: As per HPI, otherwise 10 point review of systems is negative. PAST MEDICAL HISTORY: As per HPI. PAST SURGICAL HISTORY: History of breast cancer surgery, hysterectomy, tonsillectomy. FAMILY HISTORY: No GI malignancies. SOCIAL HISTORY: No smoking, alcohol, or drug use. HOME MEDICATIONS: Are not reconciled. ALLERGIES: No known drug allergies. PHYSICAL EXAMINATION: Vital Signs: Temperature 98.4, heart rate 64, respiratory rate 16, blood pressure 116/51, O2 saturation is 92% on room air. General: The patient is awake, alert, oriented, in no acute distress. HEENT: Sclerae are anicteric. Moist mucous membranes. Extraocular motor intact. Neck: Supple. No JVD or lymphadenopathy. Cardiac: Regular rate and rhythm. No murmurs, rubs or gallops. Lungs: Clear to auscultation bilaterally. No wheezing. Abdomen: Nondistended. Stab wounds are clean, dry, and intact. Bowel sounds are hypoactive. No rebound or guarding. Minimal tenderness throughout. Extremities: No clubbing, cyanosis or edema. Neurologic: Nonfocal. LABORATORY DATA: White count of is 7.5 from 10.8 on admission, hemoglobin 12.0, platelets 155,000. Sodium 135, potassium 3.5, chloride 101, bicarbonate 21, BUN 16, creatinine 1.1 from 0.8 on admission. Glucose is 96, total bilirubin of 1.43 from 3.4 on admission. AST of 133, ALT of 190, alkaline phosphatase of 198, total protein of 6.0, albumin of 2.9. Her lipase on admission was 23. UA was negative. IMAGING: CT of the abdomen and pelvis with IV contrast one month before shows moderately distended gallbladder with 2 small stones in the dependent portion of the gallbladder. No evidence of cholecystitis, mild diverticulosis in the sigmoid colon. X-ray with low lung volumes with patchy bibasilar atelectasis, cardiomegaly, and pulmonary vascular congestion. ASSESSMENT AND PLAN: Ms. Francoise Monteiro is a 73-year-old woman with history of hypertension, hyperlipidemia, CAD status post MD on aspirin, who presented with presumably chronic cholecystitis and choledocholithiasis identified on intraoperative cholangiogram. The patient is hemodynamically stable with no signs of cholangitis. She is currently on a clear liquid diet and antibiotics. We will make her n.p.o. and plan for diagnostic and therapeutic ERCP with [*] tomorrow. We have discussed the case with him. You can trend the LFTs and do not trend lipase. We will follow with you. Please call with any questions or concerns.
[2019-03-13 07:31] LABS: ALB/GLOB RATIO 1.2; ALBUMIN 2.4 g/dL (3.5-5.0); DIRECT BILIRUBIN 0.4 mg/dL (0.00-0.20); TOTAL BILIRUBIN 0.71 mg/dL (0.20-1.00); TOTAL PROTEIN 4.4 g/dL (6.3-8.3)
[2019-03-13 09:24] LABS: AGAP 10; BUN 13 mg/dL (8-22); CALCIUM 8.6 mg/dL (8.8-10.2); CHLORIDE 106 mmol/L (98-107); COSMO 277; CREATININE 0.9 mg/dL (0.5-0.9); ESTIMATED GFR > 60; GLUCOSE 92 mg/dL (70-104); POTASSIUM 3.3 mmol/L (3.5-5.1); SODIUM 139 mmol/L (136-145); TCO2 23 mmol/L (25-35)
[2019-03-13] MEDS ORDERED: DIPRIVAN 1% ONE ×2 (11:42→11:43)
[2019-03-13] MEDS ORDERED: FENTANYL ONE ×2 (12:04→12:05)
--- NOTE | 2019-03-13 12:30 | ENDOSCOPY OPERATIVE NOTE ---
[facility] ENDOSCOPY OPERATIVE NOTE , ERCP PROCEDURE REPORT EXAM DATE: 03/13/2019 PATIENT NAME: Francoise Monteiro MR #: [id number] BIRTHDATE: 1945 ATTENDING: Rui Simeon MD STATUS: inpatient DENTAL OFFICE RECEPTIONIST: Yanet Lynch and Ngoc Mcmahan INDICATIONS: The patient is a 73 yr old female here for an ERCP due to established bile duct stone(s ). PROCEDURE PERFORMED: ERCP with sphincterotomy/papillotomy ERCP with foreign body removal MEDICATIONS: Per Anesthesia CONSENT: The patient understands the risks and benefits of the procedure and understands that these r isks include, but are not limited to: sedation, allergic reaction, infection, perforation and/or bleeding. Alternative means of evaluation and treatment include, among others: physical exam, x-rays, and/or surgical intervention. The patient elects to proceed with this endoscopic procedure. HISTORY AND PHYSICAL: 03/13/2019 DESCRIPTION OF PROCEDURE: During intra-op preparation period all mechanical and medical equipment was checked for proper function. Hand hygiene and appropriate measures for infection prevention was taken. After the risks, benefits and alternatives of the procedure were thoroughly explained, Informed was verified, confirmed and timeout was successfully executed by the treatment team. With the patient in left semi-prone position, medications were admini stered intravenously.The [id number] ([id number]) was passed from the mouth into the esophagus and further advanc ed from the esophagus into the stomach. From stomach scope was directed to the second portion of the duodenum. M ajor papilla was aligned with the duodenoscope. The scope position was confirmed fluoroscopically. Rest of the finding s/therapeutics are given below. The scope was then completely withdrawn from the patient and the procedure completed. Th e pulse, BP, and O2 saturation were monitored and documented by the physician and the nursing staff throughout the ent marina procedure. The patient was cared for as planned according to standard protocol. The patient was then discharged to [facility] in stable condition and with appropriate post procedure care. ERCP: A plate grainer film prior to endoscope insertion appeared normal. The Major Papilla was located in t he second portion of the duodenum. Bile duct cannulation was attempted using the sphincterotome with guidewire. Say ulation of the bile duct was performed with ease. The cholangiogram revealed two stones in the distal common bile duct. With guidewire within the bile duct, a biliary sphincterotomy was performed. A stone extraction was atte mpted using a stone extraction balloon. The bile duct was swept three times. Two stones were removed from the yony e duct. ADVERSE EVENT: There were no complications. IMPRESSIONS: 1. Common bile duct stone(s) 2. S/P Cholecystectomy Sphincterotomy done and stone removed. RECOMMENDATIONS: 1. Start Full liquid diet for 1 Day(s) 2. Advance diet as tolerated 3. Resume current medications 4. Disposition 5. Return to floor when standard parameters are met REPEAT EXAM: Rui Simeon MD eSigned: Rui Simeon MD 03/13/2019 12:29 PM cc: MD Kevin Golden MD PATIENT NAME: Francoise Monteiro MR#: [id number]
[2019-03-13] MEDS: PERIDEX MT SCH ×2 (13:35→22:29)
[2019-03-13] MEDS: MICRO-K PO SCH ×2 (13:35→22:30)
[2019-03-13] MEDS: NEXIUM PO SCH (13:36)
[2019-03-13] MEDS: LOPRESSOR PO SCH ×2 (13:36→22:13)
--- NOTE | 2019-03-13 13:49 | Diag Imaging Result Doc PS360 ---
EXAM: ERCP-BILIARY AND PANCREATIC 03/13/2019 HISTORY: Bile duct stone s/p cholecystectomy TECHNIQUE: Four images, 2.1 minutes fluoroscopy time, 28.6 mGy. COMMENT: The initial image demonstrates filling defect in the distal common bile duct. A stone basket and balloon were apparently passed. IMPRESSION: Extraction of stone by Dr. Simeon. Electronically signed by Edson Roa 03/13/2019 1:47 PM
--- NOTE | 2019-03-13 14:48 | PROGRESS NOTE ---
DATE: 03/13/2019 SUBJECTIVE: I evaluated this patient before the procedure; she had an a ERCP done today. She seems to be stable. They removed 2 stones from the bile duct after doing a sphincterotomy. OBJECTIVE: Vital Signs: Temperature 98 degrees, pulse 48, blood pressure 132/57, oxygen saturation 90% on 2 L of nasal cannula. HEENT: Head normocephalic. Normocephalic. PERRLA. Neck: Supple. No JVD. No masses. Central trachea. Chest: Clear to auscultation. No wheezing. No rales. Abdomen: Soft, nontender, nondistended. The small incisions are okay. They are stable. Some right upper quadrant tenderness to palpation. Neurological: Awake, alert. She is oriented x3. No focal deficits before the surgery. LABORATORY: Sodium 139, potassium 3.3, chloride 106, bicarbonate 23, BUN 13, creatinine 0.9, glucose 92, calcium 8.6, total bilirubin 0.7, AST 50, ALT 102, alkaline phosphatase 130, albumin 2.4. ASSESSMENT AND PLAN: 1. Right upper quadrant pain due to cholecystitis status post laparoscopic cholecystectomy and cholangiogram, postoperative day number 2. Cholangiogram showed some filling defects. Today this patient went for an ERCP, the bile duct was swept, three times and 2 stones were removed from the bile duct. They have recommended to start full liquid diet for one day then advance the diet as tolerated, resume current medications, and go to the floor when standard parameters are met. 2. History of coronary artery disease status post stent placement, previous myocardial infarction, stable. No chest pain. 3. Dyslipidemia continue with atorvastatin once the liver function tests are normal in the future. 4. Hypertension. Continue same management. 5. Mild acute kidney injury, resolved. 6. Gastroesophageal reflux disease. Continue proton pump inhibitors. cc: Rosendo Garcia MD
--- NOTE | 2019-03-13 15:06 | PROGRESS NOTE ---
DATE: 03/13/2019 Ms. Francoise Monteiro is a 73-year-old white female, underwent a laparoscopic cholecystectomy for jaundice and gallstones. We felt that she had some stones at the time of her intraoperative cholangiogram. She has undergone an ERCP today per Dr. Simeon and 2 stones were removed from the duct. She has been placed back on a clear liquid diet. All her trocar sites are healing well. Her abdomen is soft and from surgical standpoint as far as her laparoscopic cholecystectomy, she can be sent home with followup in my outpatient office in 7 to 10 days. cc: Edel Aranda MD
[2019-03-14] MEDS: ZOSYN 3.375 GM in NS 50 ML IV SCH ×2 (06:00→11:36)
[2019-03-14] MEDS: NS 1,000 ML IV SCH (06:01)
[2019-03-14 07:27] LABS: AGAP 8; ALB/GLOB RATIO 0.9; ALBUMIN 2.6 g/dL (3.5-5.0); ALKALINE PHOSPHATASE 128 U/L (32-104); BUN 15 mg/dL (8-22); CALCIUM 8.2 mg/dL (8.8-10.2); CHLORIDE 110 mmol/L (98-107); COSMO 283; CREATININE 0.9 mg/dL (0.5-0.9); ESTIMATED GFR > 60; GLUCOSE 84 mg/dL (70-104); GOT 45 U/L (10-30); GPT 86 U/L (10-36); POTASSIUM 3.6 mmol/L (3.5-5.1); SODIUM 142 mmol/L (136-145); TCO2 24 mmol/L (25-35); TOTAL BILIRUBIN 0.66 mg/dL (0.20-1.00); TOTAL PROTEIN 5.6 g/dL (6.3-8.3)
[2019-03-14 07:35] VITALS: BP 119/67
[2019-03-14] MEDS: PERIDEX MT SCH (08:33)
[2019-03-14] MEDS: LOPRESSOR PO SCH (08:34)
[2019-03-14] MEDS: NEXIUM PO SCH (08:35)
[2019-03-14] MEDS: MICRO-K PO SCH (08:35)
--- NOTE | 2019-03-14 11:44 | GASTROENTEROLOGY PROGRESS NOTE ---
DATE: 03/14/2019 SUBJECTIVE: Ms. Francoise Monteiro is a 73-year-old female resting in bed. The patient has denied any nausea, vomiting, but did mention having slight abdominal tenderness all over. The patient has denied having any bowel movements today. Patient is on a cardiac diet and is tolerating her diet well. OBJECTIVE: Vital Signs: Temperature 97.8 degrees, pulse 51, respirations 16, blood pressure 119/67, oxygen saturation 98% on 2 L nasal cannula. The patient's weight is 149 pounds. BMI is 27.3 kg/m2. General: She is alert, oriented x3, and in no acute distress. HEENT: Pale conjunctivae. No icterus. PERRLA. Neck: Supple. Lungs: Clear to auscultation. Cardiovascular: Patient is bradycardic. Abdomen: Mildly distended, tender. The patient has Steri-Strips, 3 on the right quadrant and 1 in the midline below the umbilicus. Active bowel sounds heard in all 4 quadrants. Extremities: No clubbing, no cyanosis, no edema. Pedal pulses 2+ present bilaterally. Neurologic: She is alert, oriented x3. LABORATORY DATA: Her hematology is from 03/12/2019. WBC 7.51, RBC 3.92, hemoglobin 12.0, hematocrit 36.7, platelet count is 155,000. Sodium 142, potassium 3.6, chloride 110, carbon dioxide 24, anion gap 8, BUN 15, creatinine 0.9, glucose 84, calcium 8.2. Total bilirubin 0.66, AST 45, ALT 86, alkaline phos 128, albumin 2.6. IMAGING: An ERCP x-ray showed extraction of the stone. IMPRESSION AND PLAN 1. Cholecystitis status post laparoscopic cholecystectomy. 2. Choledocholithiasis status post ERCP. 3. Elevated liver enzymes. 4. Hypertension. 5. GERD. PLAN: Ms. Monteiro is a 73-year-old female who recently had a laparoscopic cholecystomy done and had an ERCP done yesterday and the stones were removed. The patient is currently on a cardiac diet and she is receiving IV fluids normal saline at 75 mL. She is on antibiotic Zosyn 100 mL/hour. The patient is on PPI daily. He LFT's are trending downwards. She has a discharge order to go home today. she will follow up with Dr. Simeon as an outpatient. We will continue to monitor the patient and follow the plan of care per PCP. This plan was discussed with Dr. Campbell. Please call us for any further questions or concerns. Dictated by WOLF Kingston for Kunal Campbell MD MTDD
--- NOTE | 2019-03-14 21:47 | DISCHARGE SUMMARY ---
ADMISSION DATE: 03/10/2019 DISCHARGE DATE: 03/14/2019 ADMITTING DIAGNOSES: 1. Jaundice. 2. Chronic cholecystitis with cholelithiasis and choledocholithiasis. PRINCIPAL PROCEDURES: 1. Abdominal and pelvic CT scan 03/10/2019. 2. Laparoscopic cholecystectomy with intraoperative cholangiogram on 03/11/2019. 3. ERCP per Dr. Simeon 03/13/2019. DISCHARGE DIET: Regular. DISCHARGE DISPOSITION: She will return to our outpatient office in 7 to 10 days for followup. DISCHARGE DISABILITIES.: Full. DISCHARGE MEDICATIONS: She is to return to her home medications. HOSPITAL COURSE: Ms. Francoise Monteiro is a 73-year-old white female who presented to [facility] Department on 03/10/2019 with abdominal pain elevated liver enzymes, hyperbilirubinemia and evidence of chronic cholecystitis. A CT scan was part of her evaluation which suggested gallstones and chronic cholecystitis. It was felt that her elevated liver function tests and jaundice was related to gallstones, and she was from [facility] to [facility] for further evaluation. The following day, 03/11/2019, she went to the operating room and underwent a laparoscopic cholecystectomy with intraoperative cholangiogram. The cholangiogram suggested stones in the distal common bile duct. There was no dye that went into the duodenum. GI medicine was consulted and she was initially seen by Dr. Kunal Campbell and then Dr. Simeon performed the ERCP on 03/13/2019. The day after the ERCP, she was awake, cooperative and had no abdominal pain. Her abdomen was soft. She was tolerating her diet. She could ambulate in the halls. Her trocar sites were healing well. It was felt safe to discharge her home under the care of her family with followup in my outpatient office in 7 to 10 days. She is to return to her home medications. She knows to contact me with any increasing abdominal distention or pain, fever, nausea or vomiting. cc: Edel Aranda MD
--- NOTE | 2019-03-18 18:32 | HISTORY AND PHYSICAL ---
CHIEF COMPLAINT: Abdominal pain. HISTORY OF PRESENT ILLNESS: The patient is a 73-year-old female who presented to the ER with right upper quadrant pain. She does have a history of gallbladder sludge and stones. White count was elevated at 16. She re-presented today with continued pain. Denies nausea, vomiting, shortness of breath, or diarrhea. ALLERGIES: NO KNOWN DRUG ALLERGIES. MEDICATIONS: Pravachol 80, aspirin 325, metoprolol 25, Ventolin, Xanax 0.5, Lasix, Pepcid, and Protonix. REVIEW OF SYSTEMS: As noted above. Denies any fevers, chills, cough, congestion. Denies any headaches, blurred vision, change in vision. Denies any dysuria, frequency, urgency, hesitancy. Does have right upper quadrant abdominal pain and nausea. Denies diarrhea, constipation, melena, hematochezia, or hematemesis. PAST MEDICAL HISTORY: Significant for hypertension, hyperlipidemia, known coronary artery disease, COPD, breast cancer, history of CVA. SURGICAL HISTORY: She has had an appendectomy, hysterectomy, and tonsillectomy. FAMILY HISTORY: Noncontributory. SOCIAL HISTORY: The patient lives at home. Is cared for by her family. PHYSICAL EXAM: VITAL SIGNS: Reviewed. She is afebrile. Temperature 97.4, pulse 84, respiratory rate 18, BP 141/76, saturating 97% sat on room air. GENERAL: The patient is awake, alert. She is in no current respiratory distress. The patient is pleasant. HEENT: Normocephalic. NECK: Supple. CARDIOVASCULAR: Regular rate. CHEST: Clear. ABDOMEN: Soft. Tender in the right upper quadrant. Slightly distended in the right upper quadrant. EXTREMITIES: Moves all extremities. NEUROLOGIC: No focal neurological changes. SKIN: Warm and dry. No rashes. ASSESSMENT: 1. Cholecystitis. 2. Hypertension. 3. Hyperlipidemia. 4. Known history of coronary disease. PLAN: We are going to continue patient in the hospital. We will transfer her to [facility] and ask Surgery for evaluation, as most likely she will require surgical intervention for her gallbladder disease. cc: Cornelio Rodriguez MD MTDD
== END 2019-03-14 12:50 | disposition home or self-care (01) | DRG 418 ==
LOC: P.ED 12:13 → SUATTDRO 16:59 → EDIPHOLD 16:59 → 4N 19:47
PROVIDERS: ATTEND Internal Medicine
PROC: EN.ERCP (2019-03-13 11:54)